=== PATIENT | male | born 1960 | race Caucasian/White ===

== ENCOUNTER 2018-01-22 08:53 | Outpatient (RCR) | payer OTHER ==
[2018-01-22 09:11] LABS: BASOPHILS % (AUTO) 1 % (0-10); EOSINOPHILS # (AUTO) 0.3 10^3/uL (0.0-0.3); EOSINOPHILS % (AUTO) 3 % (0-10); HEMATOCRIT 46 % (40-54); HEMOGLOBIN 15.9 G/DL (13.3-17.7); LYMPHOCYTES % (AUTO) 35 % (12-44); MEAN CORPUSCULAR HEMOGLOBIN 31 PG (25-34); MEAN CORPUSCULAR HGB CONC 35 G/DL (32-36); MEAN CORPUSCULAR VOLUME 88 FL (80-99); MEAN PLATELET VOLUME 10.1 FL (7.4-10.4); MONOCYTES # (AUTO) 0.9 X 10^3 (0.0-1.0); MONOCYTES % (AUTO) 10 % (0-12); NEUTROPHILS # (AUTO) 4.3 X 10^3 (1.8-7.8); NEUTROPHILS % (AUTO) 51 % (42-75); PLATELET COUNT 293 10^3/uL (130-400); RED BLOOD COUNT 5.19 10^6/uL (4.35-5.85); RED CELL DISTRIBUTION WIDTH 13.3 % (10.0-14.5); WHITE BLOOD COUNT 8.5 10^3/uL (4.3-11.0)
== END 2018-04-22 | disposition home or self-care (01) ==
LOC: ONC 08:53
PROVIDERS: ATTEND Internal Medicine Hematology & Oncology
DX: D58.2 Other hemoglobinopathies (principal); T38.7X5A Adverse effect of androgens and anabolic congeners, initial encounter; E29.1 Testicular hypofunction; D50.9 Iron deficiency anemia, unspecified; F32.9 Major depressive disorder, single episode, unspecified; Z79.899 Other long term (current) drug therapy
CPT/HCPCS: 36415; 82728; 84153; 84403; 85025; 99213

== ENCOUNTER 2018-04-24 08:47 | Outpatient (RCR) | payer OTHER | END 2018-05-18 | disposition home or self-care (01) | LOC: ONC 08:47 | PROVIDERS: ATTEND Internal Medicine Hematology & Oncology | DX: D58.2 Other hemoglobinopathies (principal); T38.7X5A Adverse effect of androgens and anabolic congeners, initial encounter; E29.1 Testicular hypofunction; D50.9 Iron deficiency anemia, unspecified; F32.9 Major depressive disorder, single episode, unspecified; Z79.899 Other long term (current) drug therapy | CPT/HCPCS: 99213 ==